=== PATIENT | female | born 1955 | race Caucasian/White ===

== ENCOUNTER 2016-11-10 07:23 | Day surgery (SDC) | payer OTHER ==
[~2016-11-10] VITALS: Ht 162.6 cm; Wt 73.1 kg
[2016-11-10 08:53] VITALS: Ht 162.6 cm; Wt 73.1 kg
[2016-11-10] MEDS ORDERED: CHLO25TA13 PO (09:03)
[2016-11-10] MEDS ORDERED: DOCU100P MC (09:03)
[2016-11-10] MEDS ORDERED: SITA100T8 PO (09:03)
[2016-11-10] MEDS ORDERED: METF-731 PO (09:03)
[2016-11-10] MEDS ORDERED: PRAV20TA2 PO (09:03)
[2016-11-10] MEDS ORDERED: ASPI-664 PO (09:03)
[2016-11-10] MEDS ORDERED: BENA40TA41 PO (09:03)
[2016-11-10] MEDS ORDERED: OMEP-28 PO (09:03)
[2016-11-10] MEDS ORDERED: FENTAnyl 50 MCG/ML VIAL ONE (11:24)
[2016-11-10] MEDS ORDERED: MIDAZOLAM 1 MG/ML 2 ML INJ ONE (11:25)
--- NOTE | 2016-11-10 12:28 | GILP ---
DATE OF PROCEDURE: 11/10/2016 PROCEDURE PERFORMED: Esophagogastroduodenoscopy. PREOPERATIVE DIAGNOSIS: The patient is presenting with history of chronic heartburn and dyspepsia. Rule out peptic ulcer disease, esophagitis. POSTOPERATIVE DIAGNOSIS: 1. Nodularity of the gastric fundus noted. 2. Patchy gastritis noted in the antrum. 3. Duodenum and esophagus appeared normal. DESCRIPTION OF PROCEDURE: After the informed written consent was obtained, the patient was asked to lay on the left lateral side. 3 mg Versed and 50 mcg of fentanyl was given as intravenous anesthesia. When the patient became somnolent, Olympus video upper endoscope was introduced into the oropharynx and then into the esophagus. The esophagus appeared normal with no evidence of any mucosal abnormality. The scope at this time was advanced into the stomach. Nodularity of the gastric fundus was noted with a moderate sized nodularity of this picture noted of the mucosa. Multiple biopsies were obtained to rule out H. pylori infection. Two rule out MALToma. A few areas of erythema were noted in the antrum of the stomach. Biopsy was done from the antrum on the lesser curvature to rule out H. pylori infection. The mucosa of the duodenal bulb to the 3rd portion appeared normal. Endoscope at this time was withdrawn. No additional abnormalities detected and the procedure was terminated. PLAN: Recommend proton pump inhibitor therapy and wait for the pathology report. Currently patient is on omeprazole 20 mg. Recommend to increase the omeprazole to 40 mg a day. Dictated By: Heath Weems MD /iram/jensen /Document#: [id number] ; Dr. Nathaly Ortiz
== END 2016-11-10 12:29 | disposition home or self-care (01) ==
LOC: GIL 07:23
PROVIDERS: ATTEND Internal Medicine Gastroenterology
DX: Z12.11 Encounter for screening for malignant neoplasm of colon (principal); D12.2 Benign neoplasm of ascending colon; K29.70 Gastritis, unspecified, without bleeding; K57.90 Diverticulosis of intestine, part unspecified, without perforation or abscess without bleeding
CPT/HCPCS: 43239; 45380; 82962; 88305; 88312; J2250; J3010; Z7610